=== PATIENT | female | born 1960 | race Two or more races ===

== ENCOUNTER 2021-07-12 22:49 | Emergency (ER) | payer OTHER ==
[~2021-07-12] VITALS: Ht 167.6 cm; Wt 70.3 kg
[~2021-07-12 22:49] MED LIST: XANAX1 MG
[2021-07-12] MEDS ORDERED: XANAX2 MG PO (22:56)
[2021-07-12] MEDS ORDERED: PAXIL20 MG PO (22:56)
== END 2021-07-13 10:59 | disposition home or self-care (01) ==
LOC: ER 22:49
DX: K80.50 Calculus of bile duct without cholangitis or cholecystitis without obstruction (principal); R11.2 Nausea with vomiting, unspecified; R10.13 Epigastric pain; Z03.818 Encounter for observation for suspected exposure to other biological agents ruled out